=== PATIENT | male | born 1955 | race Caucasian/White ===

== ENCOUNTER → 2016-11-14 | Outpatient (CLI) | payer OTHER | LOC: ECHO 11:30 | DX: R06.02 Shortness of breath (principal); I20.8 Other forms of angina pectoris | CPT/HCPCS: ECHO; 93306 ==

== ENCOUNTER → 2016-11-15 | Outpatient (CLI) | payer OTHER | LOC: NM 08:44 | DX: I20.8 Other forms of angina pectoris (principal); R06.02 Shortness of breath | CPT/HCPCS: 78452; 93017; A9502; J2785 ==